=== PATIENT | female | born 1965 | race Hispanic/Latino ===

== ENCOUNTER → 2024-06-15 | Outpatient (CLI) | payer OTHER, SELFPAY ==
[~2024-06-15] MED LIST: ATOR40TA69 PO; CHLO25TA3 PO; GABA-529 PO; GLIP2.5T2 PO; LISI40TA9 PO; ZOLP10TA2 PO
== END | disposition home or self-care (01) ==
LOC: RAH 11:43
PROVIDERS: ATTEND Urology
DX: N20.0 Calculus of kidney (principal)
CPT/HCPCS: 74018; 76100

== ENCOUNTER 2025-07-18 13:08 | Emergency (ER) | payer BC, SELFPAY ==
[~2025-07-18] VITALS: Ht 149.9 cm; Wt 71.7 kg
[~2025-07-18 13:08] MED LIST changes: -GLIP2.5T2 PO; +GLIP2.5T23 PO; +LISI40TA15 PO; -LISI40TA9 PO; +ZOLP-685 PO; -ZOLP10TA2 PO
--- NOTE | 2025-07-18 13:18 | ERN ---
General Chief Complaint: Flu Symptoms Stated Complaint: FLU Time Seen by MD: 13:12 Source: patient History of Present Illness Initial Comments Patient is a 59-year-old female coming in complaining of URI symptoms. URI symptoms include cough congestion and headaches.. Per patient she has been having cough and congestion for a couple of days. She states that along with the that has he has been having fever and chills. Allergies: Coded Allergies: Penicillins (Unverified Allergy, Unknown, 02/21/24) Home Meds Reported Medications Lisinopril (Lisinopril) 40 Mg Tablet, 40 MG PO DAILY, TAB 02/22/24 Zolpidem Tartrate (Ambien) 10 Mg Tablet, 10 MG PO AD PRN for INSOMNIA, TAB 02/22/24 Chlorthalidone (Chlorthalidone) 25 Mg Tablet, 25 MG PO DAILY, TAB 02/22/24 Glipizide (Glipizide ER) 2.5 Mg Tab.er.24, 2.5 MG PO BID 02/22/24 Gabapentin (Gabapentin) 100 Mg Capsule, 100 MG PO DAILY, CAP 02/22/24 Atorvastatin Calcium (LIPITOR) 40 Mg Tablet, 40 MG PO DAILY, TAB 02/22/24 Past Medical History Past Medical History: Diabetes-Type II, Hypertension, Renal Disese Medical History Other: AML REMISSION Past Surgical History: Appendectomy, Cholecystectomy, Other Surgical History Other: LT NEPHECTOMY, ABD HERNIA REPAIR Female( History) History: Not Applicable ROS Dictation CONSTITUTIONAL: chills, fever, no weakness, no diaphoresis, no malaise. HEAD/FACE: No signs of trauma. EENT: No eye pain, no blurred vision, no tearing, no double vision, no ear pain, no ear discharge, no nose pain, no nasal congestion, no throat pain, no throat swelling, no mouth pain. RESPIRATORY: No cough, no orthopnea, no SOB, no stridor, no wheezing. CARDIOVASCULAR: No chest pain, no edema, no palpitations, no syncope. GASTROINTESTINAL/ABDOMINAL: No abdominal pain, no constipation, no diarrhea, no nausea, no vomiting. GENITOURINARY: No abnormal discharge, no dysuria, no frequent urination, no hematuria. No complaints of pain in the genitals. MUSCULOSKELETAL: No back pain, no gout, no joint pain, no joint swelling, no muscle pain, no muscle stiffness, no neck pain. INTEGUMENTARY: No change in color, no change in hair/nails, no dryness, no lesion, no lumps, no rash. NEUROLOGICAL/PSYCH: No anxiety, not depressed, no emotional problem, no headache, no numbness, no pre-existing deficit, no history of seizures, no tremors, no weakness. HEMATOLOGIC/LYMPHATIC: Not anemic, no history of blood clots, no apparent bleeding, no bruising, glands not swollen. All Systems Negative, Except as Noted. Physical Exam Physical Exam Dictation VITAL SIGNS: Reviewed. GENERAL APPEARANCE: Alert, oriented x3, no acute distress, obese. HEAD AND FACE: Non-traumatic. EYES: PERRL, pink conjunctivas, eyelid no trauma, anterior chamber clear. EARS: Pinnas intact and no signs of trauma or erythema. Ear canals clear and no discharge. TMs no erythema. NOSE: No discharge, no bleeding. OROPHARYNX: Mouth normal, teeth no caries, tongue pink. Pharynx clear, no er ythema. Tonsils no exudates, no abscesses noted. Mucous membrane moist. NECK: Supple, non-tender, no thyromegaly, no masses, no JVD, no bruits. BREAST: Deferred. CHEST: No tenderness, no crepitus, no paradoxical movement, no retractions. LUNGS: Clear, well-ventilated, symmetric, no rales, no wheezing, no rhonchi, no stridor, good breath sounds bilaterally. HEART: Regular rate, regular rhythm, no murmur, no gallops. VASCULAR: No peripheral edema. ABDOMEN: Soft, positive bowel sounds, nondistended, no guarding, nontender, no rebound, no masses no hepatomegaly, no splenomegaly, no Yuen's sign, no hernias. RECTAL: Deferred. GENITAL: Deferred. NEUROLOGICAL: Normal speech, gross motor function intact, gross sensory function intact. MUSCULOSKELETAL: Neck nontender, full range of motion, back nontender, full range of motion. EXTREMITIES: Nontender, full range of motion. SKIN: Color pink, dry, no turgor, no rash, no lacerations, no abrasions, no contusions. LYMPHATICS: Deferred. Results Laboratory and Microbiology Lab and Micro Result Laboratory Tests Test 07/18/25 13:25 07/18/25 13:27 Influenza Type A Antigen Positive For Type A Influenza Type B Antigen Negative For Type B SARS-CoV-2, RNA, NAAT NEGATIVE SARS CoV-2 Group A Streptococcus Rapid negative (NEGATIVE) White Blood Count 5.0 K/uL (4.8-10.8) Red Blood Count 3.66 MIL/uL (4.00-5.50) L Hemoglobin 11.2 g/dL (12.0-16.0) L Hematocrit 34.1 % (36-48) L Mean Corpuscular Volume 93.2 fL (79-99) Mean Corpuscular Hemoglobin 30.6 pg (27.0-33.0) Mean Corpuscular Hemoglobin Concent 32.8 g/dL (32.0-36.0) Red Cell Distribution Width 14.2 % (11.0-15.5) Platelet Count 207 K/uL (130-400) Mean Platelet Volume 9.9 fL (7.5-10.5) Immature Granulocyte % (Auto) 0.4 % (0-1) Neutrophils (%) (Auto) 77.6 % (40.0-77.0) H Lymphocytes (%) (Auto) 12.7 % (21.0-51.0) L Monocytes (%) (Auto) 8.9 % (3.0-13.0) Eosinophils (%) (Auto) 0.2 % (0.0-8.0) Basophils (%) (Auto) 0.2 % (0.0-5.0) Neutrophils # (Auto) 3.8 K/uL (1.8-7.7) Lymphocytes # (Auto) 0.6 K/uL (1.0-4.8) L Monocytes # (Auto) 0.4 K/uL (0.1-1.0) Eosinophils # (Auto) 0.01 K/uL (0.00-0.70) Basophils # (Auto) 0.01 K/uL (0.00-0.20) Absolute Immature Granulocyte (auto 0.02 K/uL (0-1) Nucleated Red Blood Cells 0.0 % (0.0-0.19) Sodium Level 136 mmol/L (136-145) Potassium Level 4.1 mmol/L (3.5-5.1) Chloride Level 101 mmol/L (101-111) Carbon Dioxide Level 30 mmol/L (21-32) Blood Urea Nitrogen 25 mg/dL (7-18) H Creatinine 1.9 mg/dL (0.5-1.0) H Glomerular Filtration Rate Calc 30 mL/min (>90) Random Glucose 166 mg/dL (70-105) H Lactic Acid Level 1.6 mmol/L (0.8-2.5) Total Calcium 8.9 mg/dL (8.5-10.1) Total Creatine Kinase 281 U/L (21-232) #H Troponin I High Sensitivity 8 ng/L (4-50) Labs Reviewed?: Yes EKG/XRAY/US/CT/MRI EKG Comment 07/18/2025 time 1:05 p.m. Ventricular rate 111 Sinus tachycardia NE [address] wave elevation or depression MDM MDM: Differential diagnosis: Influenza a, URI, Rationale: Tests considered and ordered secondary to shared decision making include: Previous outside records reviewed: Old ER visits. Risk of complication and/or morbidity or mortality of patient management: None Medications-Per medication reconciliation Need for hospitalization: Patient does not meet criteria for hospitalization. Need for emergency major/minor surgery: No There are no social concerns with this patient. Patient is a 59-year-old female coming in complaining of URI symptoms. Laboratory workup positive for influenza A. Patient will be discharged in stable condition with the Tamiflu. I did advised her appropriate follow up with PCP for long-term management. ED Course Orders Procedure Category Date Status Time Cbc With Differential LAB 07/18/25 Complete 13:14 Blood Cult LYNNE 07/18/25 In Process 13:14 Urinalysis Profile LAB 07/18/25 Logged 13:14 Culture Urine LYNNE 07/18/25 Logged 13:14 Creatine Kinase, Total LAB 07/18/25 Complete 13:14 Troponin I High LAB 07/18/25 Complete Sensitivity 13:14 Lactic Acid LAB 07/18/25 Complete 13:14 Basic Metabolic Panel LAB 07/18/25 Complete 13:14 Covid Rna Naat LAB 07/18/25 Complete 13:14 Influenza Type A & B, LAB 07/18/25 Complete Rapid 13:14 Rapid (Group A Strep) LAB 07/18/25 Complete 13:14 Acetaminophen 500mg PHA 07/18/25 Complete Tab (Tylenol 500mg T 16:00 Current Medications Medications (Trade) Dose Ordered Sig/Meera Route PRN Reason Start Time Stop Time Status Last Admin Dose Admin Acetaminophen (TYLenol 500MG TAB) 500 mg ONCE ONCE PO 07/18/25 16:00 07/18/25 16:01 DC 07/18/25 16:19 Vital Signs Date Time Temp Pulse Resp B/P (MAP) Pulse Ox O2 Delivery O2 Flow Rate FiO2 07/18/25 16:20 99.5 18 18 112/73 99 Room Air* 0 21 07/18/25 13:10 99.0 118 20 151/81 97 Room Air 0 DX & DISP Disposition: Discharge Departure Impression: Primary Impression: Influenza A Condition: Stable Scripts Fluticasone Propionate (Flonase Nasal [place]) 50 Mcg/Actuation [place] 2 SPRAY NS DAILY, #16 GM 0 Refills Prov: ASHLEY ROTH MD 07/18/25 Loratadine (Loratadine) 10 Mg Tablet 1 TAB PO DAILY for allergy symptoms for 30 Days, #30 TAB 0 Refills Prov: ASHLEY ROTH MD 07/18/25 Oseltamivir Phosphate (Tamiflu) 75 Mg Cap 1 CAP PO BID for 5 Days, #10 CAP 0 Refills Prov: ASHLEY ROTH MD 07/18/25 Additional Instructions: FOLLOW-UP WITH PRIMARY CARE PROVIDER IN 1 TO 2 DAYS. TAKE MEDICATIONS DIRECTED HERE IN THE EMERGENCY ROOM. OKAY TO CONTINUE HOME MEDICATIONS UNLESS OTHERWISE DISCUSSED DURING YOUR VISIT IN THE EMERGENCY ROOM TODAY. RETURN TO YOUR NEAREST EMERGENCY ROOM IF SYMPTOMS WORSEN OR IF THERE IS NO IMPROVEMENT. CALL 911 IF YOU NEED IMMEDIATE ASSISTANCE. TAKE TYLENOL [id number] NEEDED AND IF NO CONTRAINDICATIONS ARE PRESENT. INCREASE ORAL HYDRATION. A WOUND CULTURE OR URINE CULTURE WAS ORDERED HERE IN THE EMERGENCY ROOM DEPARTMENT PLEASE FOLLOW-UP WITH PRIMARY CARE PROVIDER AND ADVISE THEM TO GET REPORTS FROM OUR FACILITY. IF YOU HAD ANY LESLY WRAP/SPLINTS THAT WERE APPLIED HERE, PLEASE DO NOT REMOVE THEM UNTIL YOU SEE YOUR PRIMARY CARE OR SPECIALTY. Referrals: Referrals: BOOGIE ROWE DO (PCP) Time of Disposition: 16:27 ASHLEY ROTH MD Jul 18, 2025 13:18
[2025-07-18 13:34] LABS: IMMATURE GRANULOCYTE ABSOLUTE 0.02 K/uL (0-1); NUCLEATED RED BLOOD CELLS 0.0 % (0.0-0.19); PLATELET COUNT (AUTO) 207 K/uL (130-400); RED BLOOD CELL COUNT(AUTO) 3.66 MIL/uL (4.00-5.50); RED CELL DISTRIBUTION WIDTH 14.2 % (11.0-15.5); WHITE BLOOD COUNT (AUTO) 5.0 K/uL (4.8-10.8)
[2025-07-18 13:43] LABS: CREATININE 1.9 mg/dL (0.5-1.0); GLOMERULAR FILTR. RATE CALC 30.0 mL/min (>90); GLUCOSE,RANDOM 166.0 mg/dL (70-105); SODIUM SERUM 136.0 mmol/L (136-145); UREA NITROGEN, BLOOD 25.0 mg/dL (7-18)
[2025-07-18 13:48] LABS: CREATINE KINASE, TOTAL 281.0 U/L (21-232)
[2025-07-18 14:07] LABS: RAPID GROUP A STREP negative (NEGATIVE)
[2025-07-18 14:11] LABS: SARS-CoV-2, RNA, NAAT NEGATIVE SARS CoV-2 (NEGATIVE)
[2025-07-18 14:17] LABS: INFLUENZA TYPE B Negative For Type B (NEGATIVE)
[2025-07-18 14:44] LABS: INFLUENZA TYPE A Positive For Type A (NEGATIVE)
[2025-07-18 16:20] VITALS: BP 112/73; PULSE 18; RESP 18; TEMP 99.5; O2SAT 99
[2025-07-18] MEDS ORDERED: FLUT16H NS (16:28)
[2025-07-18] MEDS ORDERED: LORA10TA7 PO (16:28)
[2025-07-18] MEDS ORDERED: OSEL75 PO (16:28)
--- NOTE | 2025-07-18 18:08 | EKG ---
[facility] Test Date: 2025-07-18 Test Time: 13:05:53 Pat Name: GATITO GRAVES Department: ED Room: Gender: F Joint Runner: [id number] : 1965 Requested By: ASLHEY ROTH Order Number: [id number] Reading MD: Jolene Ramírez Measurements Intervals [place] Rate: 111 P: 73 [place]: 189 QRS: 11 QRSD: 81 T: 30 QT: 304 QTc: 414 Interpretive Statements Sinus tachycardia Low voltage, precordial leads Compared to ECG 02/21/2024 18:51:53 Sinus rhythm no longer present Electronically Signed On 07-19-2025 12:31:12 TONAL REGULATOR by Jolene Ramírez Please click the below link to view image of tracing.
== END 2025-07-18 17:00 | disposition home or self-care (01) ==
LOC: EDH 13:08
DX: J10.1 Influenza due to other identified influenza virus with other respiratory manifestations (principal); E11.9 Type 2 diabetes mellitus without complications; I10 Essential (primary) hypertension; Z20.822 Contact with and (suspected) exposure to COVID-19; Z79.84 Long term (current) use of oral hypoglycemic drugs; Z79.899 Other long term (current) drug therapy; Z88.0 Allergy status to penicillin; Z90.49 Acquired absence of other specified parts of digestive tract; Z98.890 Other specified postprocedural states
CPT/HCPCS: 99284; 87635; 82550; 84484; 80048; 85025; 87040 ×2; 87880; 87804 ×2; 83605; 36415; 96372; 93005; J1100